=== PATIENT | female | born 1965 | race African-American/Black ===

== ENCOUNTER → 2019-09-08 | Outpatient (CLI) | payer BC ==
--- NOTE | 2019-09-12 14:02 | RAD ---
BILATERAL SCREENING MAMMOGRAM History: Routine screening. Comparison: 09/04/2015. Technique: Routine bilateral digital mammogram views were obtained. Findings: Breast Tissue Density A : The breasts are almost entirely fatty. There are no dominant masses, suspicious microcalcifications, or architectural distortion. IMPRESSION: No mammographic evidence of malignancy. Recommend routine screening. BI-RADS category 1: Negative. The images were reviewed with computer aided detection. Patient information is entered into the reminder system with a target due date for the next screening mammogram. Mammography is the most sensitive method for finding small breast cancers, but it does not detect them all and is not a substitute for careful clinical examination. A negative mammogram does not negate a clinically suspicious finding and should not result in delay in biopsying a clinically suspicious abnormality. "Our facility is accredited by the [employer] Mammography Program." Electronically signed by: Werner Sandoval MD (09/12/2019 1:59 PM) [id number]
== END | disposition home or self-care (01) ==
LOC: MAMMO 08-31 15:00
PROVIDERS: ATTEND Family Medicine
DX: Z12.31 Encounter for screening mammogram for malignant neoplasm of breast (principal)
CPT/HCPCS: 77067